=== PATIENT | male | born 1985 | race Two or more races ===

== ENCOUNTER 2019-02-16 19:26 | Emergency (ER) | payer MEDICAID ==
[~2019-02-16] VITALS: Ht 175.3 cm; Wt 73.0 kg
[2019-02-16 23:50] VITALS: BP 134/89
== END 2019-02-16 23:52 | disposition home or self-care (01) ==
LOC: ER 19:26
DX: N49.2 Inflammatory disorders of scrotum (principal); F12.10 Cannabis abuse, uncomplicated; F17.200 Nicotine dependence, unspecified, uncomplicated
CPT/HCPCS: 82962; 99283